=== PATIENT | female | born 1980 | race Two or more races ===

== ENCOUNTER 2017-04-15 17:37 | Inpatient (IN) | payer OTHER ==
[2017-04-15 18:22] VITALS: BMI 25.9
--- NOTE | 2017-04-15 19:46 | HP ---
COWS - Scale Resting Pulse: 0= [place] 80 or Below Sweatin= Chills/Flushing Restless Observation: 3= Extraneous Movement Pupil Size: 0= Normal to Room Light Bone or Joint Aches: 2= Severe Diffuse Aches Runny Nose/ Eye Tearin= Runny Nose/Eyes GI Upset > 30mins: 3= Vomiting/Diarrhea Tremor Observation: 2= Slight Tremor Visible Yawning Observation: 0= None Anxiety or Irritability: 2=Irritable/Anxious Goose Flesh Skin: 0=Smooth Skin COWS Score: 15 Admission [facility] Chief Complaint: WITHDRAWAL SX Allergies/Adverse Reactions: Allergies Allergy/AdvReac Type Severity Reaction Status Date / Time No Known Allergies Allergy Verified 02/19/17 18:20 History of Present Illness: 37 YEARS OLD FEMALE WITH LONG HISTORY OF HEROIN NICOTINE DEPENDENCE HAS ASTHMA CHRONIC BACK PAIN BIPOLAR II IS ADMITTED TO DETOX Exam Limitations: No Limitations - Ebola screening Have you traveled outside of the country in the last 21 days: No Have you had contact with anyone from an Ebola affected area: No Have you been sick,other than usual withdrawal symptoms: No Do you have a fever: No - Review of Systems Constitutional: Changes in sleep, Weight Stable EENT: reports: Blurred Vision (EYE GLASSES), Hearing Loss (LEFT EAR SINCE 2 WEEKS OLD) Respiratory: reports: SOB with Exertion, Productive cough (GREEN[place] YELLOWISH) Cardiac: reports: No Symptoms Reported GI: reports: Diarrhea, Nausea, Poor Fluid Intake, Vomiting, Indigestion, Abdominal cramping : reports: No Symptoms Reported Musculoskeletal: reports: Back Pain, Joint Pain, Muscle Pain, Neck Pain Integumentary: reports: Change in Color (RIGHT INNER ARM + RIGHT AND LEFT NECK) , Dryness Neuro: reports: Tremors Endocrine: reports: No Symptoms Reported Hematology: reports: No Symptoms Reported Psychiatric: reports: Judgement Intact, Orientated x3, Anxious, Depressed Other Systems: Reviewed and Negative Patient History - Patient Medical History Hx Anemia: No Hx Asthma: Yes (Pt is on Albuterol IH) Hx Chronic Obstructive Pulmonary Disease (COPD): No Hx Cancer: No Hx Cardiac Disorders: No Hx Congestive Heart Failure: No Hx Hypertension: No Hx Hypercholesterolemia: No Hx Pacemaker: No HX Cerebrovascular Accident: No Hx Seizures: No (Denies) Hx Dementia: No Hx Diabetes: No Hx Gastrointestinal Disorders: Yes (Acid Reflux) Hx Liver Disease: No (hep b , pud) Hx Genitourinary Disorders: No Hx Sexually Transmitted Disorders: No Hx Renal Disease (ESRD): No Hx Thyroid Disease: No Hx Human Immunodeficiency Virus (HIV): No (NEVER TESTED) Hx Hepatitis C: Yes (TREATED) Hx Depression: Yes Hx Suicide Attempt: No (Denies) Hx Bipolar Disorder: Yes Hx Schizophrenia: No - Patient Surgical History Past Surgical History: No Hx Neurologic Surgery: No Hx Cataract Extraction: No Hx Cardiac Surgery: No Hx Lung Surgery: No Hx Breast Surgery: No Hx Breast Biopsy: No Hx Abdominal Surgery: No Hx Appendectomy: No Hx Cholecystectomy: No Hx Genitourinary Surgery: No Hx Section: No Hx Orthopedic Surgery: No Hx Hysterectomy: No Other Surgical History: SX X2 FOR L UPPER LEG ABSCESS - PPD History Previous Implant?: Yes Documented Results: Negative w/proof Implanted On Prior R Admission?: Yes Date: 02/21/17 Results: 0mm PPD to be Administered?: No - Reproductive History Patient is a Female of Child Bearing Age (11 -55 yrs old): Yes Last Menstrual Period: 09/19/16 Patient : No - Smoking Cessation Smoking history: Current every day smoker Have you smoked in the past 12 months: Yes Aproximately how many cigarettes per day: 30 Cigars Per Day: 0 Hx Chewing Tobacco Use: No Initiated information on smoking cessation: Yes 'Breaking Loose' booklet given: 04/15/17 - Substance & Tx. History Hx Alcohol Use: No Hx Substance Use: Yes Substance Use Type: Cocaine, Opiates Hx Substance Use Treatment: Yes (02/2017 [facility] - Substances Abused Heroin Route: Injection Frequency: Daily Amount used: 8-9 bags Age of first use: 18 Date of Last Use: 04/15/17 Alcohol Route: Oral Frequency: Daily Amount used: Beer 8-9 cans X 24OZ Age of first use: 18 Date of Last Use: 04/15/17 Cocaine Route: Injection Frequency: Daily Amount used: 5 bags Age of first use: 18 Date of Last Use: 04/15/17 Marijuana/Hashish Route: Smoking Frequency: 1-2 times per week Amount used: 1 bag Age of first use: 15 Date of Last Use: 04/08/17 Ketamine Route: Smoking Frequency: Daily Amount used: 1 bag Age of first use: 34 Date of Last Use: 04/15/17 Family Disease History - Family Disease History Family Disease History: Respiratory: Father (), Mother (), Other : Father, Mother Admission Physical Exam [facility] - Vital Signs Vital Signs: Vital Signs - 24 hr 04/15/17 18:15 Temperature 98.8 F Pulse Rate 72 Respiratory 18 Rate Blood Pressure 111/63 - Physical General Appearance: Yes: Appropriately Dressed, Mild Distress, Tremorous, Irritable, Sweating, Anxious HEENTM: Yes: Hearing grossly Normal, Normal ENT Inspection, Normocephalic, Normal Voice Respiratory: Yes: Chest Non-Tender, Lungs Clear, Normal Breath Sounds, No Respiratory Distress, No Accessory Muscle Use Neck: Yes: Supple, Trachea in good position Breast: Yes: Breasts Symetrical Cardiology: Yes: Regular Rhythm, Regular Rate, S1, S2 Abdominal: Yes: Non Tender, Soft, Increased Bowel Sounds Genitourinary: Yes: Within Normal Limits Back: Yes: Normal Inspection Musculoskeletal: Yes: full range of Motion, Gait Steady, Back pain, Muscle Pain Extremities: Yes: Normal Range of Motion, Non-Tender, Tremors, Other (IV HEROIN RIGHT INNER ELBOW + RIGHT AND LEFT LATERAL NECK) Neurological: Yes: Fully Oriented, Alert, Motor Strength 5/5, Normal Response, Depressed Affect Integumentary: Yes: Warm Lymphatic: Yes: Within Normal Limits - Diagnostic (1) Bipolar II disorder Current Visit: Yes Status: Acute (2) ASTHMA Current Visit: Yes Status: Chronic (3) GERD (gastroesophageal reflux disease) Current Visit: Yes Status: Chronic Qualifiers: Esophagitis presence: without esophagitis Qualified Code(s): K21.9 - Gastro -esophageal reflux disease without esophagitis (4) HEP.C Current Visit: Yes Status: Resolved (5) Nicotine dependence Current Visit: Yes Status: Acute (6) Opioid dependence with withdrawal Current Visit: Yes Status: Acute (7) Weight loss Current Visit: Yes Status: Acute Cleared for Admission [facility] - Detox or Rehab [facility] Level of Care: Medically Managed Detox Regimen/Protocol: Methadone/Librium [facility] Breath Alcohol Content Breath Alcohol Content: 0 Urine Pregancy Test - Result Urine Test Results: Negative- NO Line Present Urine Drug Screen - Results Drug Screen Negative: No Urine Drug Screen Results: BLANK-Cocaine, OPI-Opiates, BZO-Benzodiazepines
[2017-04-15] MEDS ORDERED: METHADONE HCL 10 MG TABLET (FOR DETOX USE ONLY) PO ONE ×2 (19:47→23:00)
[2017-04-15] MEDS ORDERED: guaiFENesin/D-METHORPHAN HB 10 ML UNIT-DOSE CUPS PO PRN (19:47)
[2017-04-15] MEDS ORDERED: MAGNESIUM CITRATE 300 ML BOTTLE PO PRN (19:47)
[2017-04-15] MEDS ORDERED: LOPERAMIDE HCL 2 MG CAPSULE PO PRN (19:47)
[2017-04-15] MEDS ORDERED: NICOTINE POLACRILEX 4 MG GUM BC PRN (19:47)
[2017-04-15] MEDS ORDERED: MAGNESIUM HYDROX 2400MG/30ML ORAL SUSPENSION 30 ML CUP PO PRN (19:47)
[2017-04-15] MEDS ORDERED: MENTHOL/PHENOL 1 EACH UD MM PRN (19:47)
[2017-04-15] MEDS ORDERED: ACETAMINOPHEN 325 MG TABLET (FP) PO PRN (19:47)
[2017-04-15] MEDS ORDERED: P-EPHED 60MG/TRIPROLIDI 2.5MG TABLET PO PRN (19:47)
[2017-04-15] MEDS ORDERED: MAG HYDROX/AL HYDROX/SIMETH 30 ML UNIT-DOSE CUP PO PRN (19:47)
[2017-04-15] MEDS ORDERED: ALBUTEROL SO4 18 GM HFA INHALER IH PRN (19:49)
[2017-04-15] MEDS ORDERED: ALBUTEROL SO4 0.083% IH SOL 2.5 MG/3 ML VIAL.NEB. NEB PRN (19:52)
[2017-04-15] MEDS: chlordiazePOXIDE HCL 25 MG CAPSULE PO PRN (20:28)
[2017-04-15 22:07] LABS: URINE APPEARANCE SLCLOUDY; URINE BILIRUBIN NEGATIVE (NEGATIVE); URINE BLOOD NEGATIVE (NEGATIVE); URINE COLOR YELLOW; URINE GLUCOSE (UA) NEGATIVE (NEGATIVE); URINE KETONE TRACE (NEGATIVE); URINE NITRITE NEGATIVE (NEGATIVE); URINE PROTEIN NEGATIVE (NEGATIVE); URINE UROBILINOGEN NEGATIVE mg/dL (0.2-1.0)
[2017-04-15] MEDS: chlordiazePOXIDE HCL 25 MG CAPSULE PO SCH (22:10)
[2017-04-15] MEDS: RANITIDINE HCL 150 MG TABLET (FP) PO SCH (22:10)
[2017-04-15] MEDS: GABAPENTIN 300 MG CAPSULE (FP) PO SCH (22:10)
[2017-04-15] MEDS: THIAMINE HCL 100 MG TABLET (FP) PO SCH (22:10)
[2017-04-15] MEDS: METHOCARBAMOL 750 MG TABLET PO SCH (22:11)
[2017-04-15 22:48] LABS: URINE LEUK ESTERASE 1+ (NEGATIVE)
[2017-04-15 23:09] LABS: EPI CELLS MODERATE /HPF (FEW); URINE MUCUS RARE
[2017-04-16] MEDS: GABAPENTIN 300 MG CAPSULE (FP) PO SCH ×3 (05:30→22:23)
[2017-04-16] MEDS: chlordiazePOXIDE HCL 25 MG CAPSULE PO SCH ×4 (05:30→22:22)
[2017-04-16] MEDS: METHOCARBAMOL 750 MG TABLET PO SCH ×3 (05:32→22:22)
[2017-04-16 09:58] LABS: HEMATOCRIT 36.2 % (32.4-45.2); HEMOGLOBIN 11.7 GM/dL (10.7-15.3); MCH 28.3 pg (25.7-33.7); MCHC 32.2 g/dl (32.0-36.0); MEAN PLT VOLUME 7.4 fl (7.5-11.1); PLATELET COUNT 314 K/MM3 (134-434); RBC 4.11 M/mm3 (3.60-5.2); RDW 17.1 % (11.6-15.6); WHITE BLOOD COUNT 8.5 K/mm3 (4.0-10.0)
[2017-04-16] MEDS ORDERED: METHADONE HCL 10 MG TABLET (FOR DETOX USE ONLY) PO SCH (10:00)
[2017-04-16 10:07] LABS: CHLORIDE 106 mmol/L (98-107); POTASSIUM 3.5 mmol/L (3.5-5.1); SODIUM 140 mmol/L (136-145)
[2017-04-16] MEDS: PRENATAL VITAMINS W/ FOLIC ACID TABLET (FP) PO SCH (10:09)
[2017-04-16] MEDS: RANITIDINE HCL 150 MG TABLET (FP) PO SCH ×2 (10:09→22:22)
[2017-04-16] MEDS: NICOTINE 21 MG/24 HOURS TOPICAL PATCH TD SCH (10:10)
[2017-04-16 10:14] LABS: ALBUMIN 2.8 g/dl (3.4-5.0); ALK PHOS 265 U/L (45-117); ANION GAP 6 (8-16); BILIRUBIN,TOTAL 0.3 mg/dL (0.2-1.0); BLOOD UREA NITROGEN 10 mg/dL (7-18); CALCIUM 7.8 mg/dL (8.5-10.1); CO2 28 mmol/L (21-32); CREATININE 0.6 mg/dL (0.55-1.02); GLUCOSE,RANDOM 101 mg/dL (74-106); SGOT/AST 71 U/L (15-37); SGPT/ALT 141 U/L (12-78); TOT PROT 6.4 g/dl (6.4-8.2)
[2017-04-16] MEDS ORDERED: FLU VACCINE QUAD 60 MCG/0.5 ML (MDV 17-18) IM ONE (12:00)
[2017-04-16] MEDS ORDERED: PNEUMOCOCCAL 23 VACCINE 0.5 ML VIAL IM ONE (12:00)
[2017-04-16] MEDS ORDERED: PNEUMOC 13-VAL CONJ-DIP CRM/PF 0.5 ML DISP.SYRIN IM ONE (12:00)
[2017-04-16] MEDS: BACITRACIN 0.9 GM PACKET TP SCH ×2 (12:10→22:22)
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
--- NOTE | 2017-04-16 13:12 | EKG ---
Test Reason : Blood Pressure : / mmHG Vent. Rate : 077 BPM Atrial Rate : 077 BPM P-R Int : 134 ms QRS Dur : 086 ms QT Int : 392 ms P-R-T Axes : 058 004 057 degrees QTc Int : 443 ms NORMAL SINUS RHYTHM NORMAL ECG WHEN COMPARED WITH ECG OF 19-FEB-2017 20:40, QT HAS LENGTHENED Confirmed by YESY IRELAND MD ([id number]) on 04/16/2017 1:12:11 PM Referred By: Lara MARTINEZ Confirmed By:YESY IRELAND MD
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
[2017-04-16] MEDS: chlordiazePOXIDE HCL 25 MG CAPSULE PO PRN (13:16)
[2017-04-16] MEDS: traZODone HCL 50 MG TABLET (FP) PO SCH (22:22)
[2017-04-16] MEDS: THIAMINE HCL 100 MG TABLET (FP) PO SCH (22:22)
[2017-04-17] MEDS: chlordiazePOXIDE HCL 25 MG CAPSULE PO SCH ×3 (05:13→17:29)
[2017-04-17] MEDS: METHOCARBAMOL 750 MG TABLET PO SCH ×3 (05:13→22:13)
[2017-04-17] MEDS: GABAPENTIN 300 MG CAPSULE (FP) PO SCH ×3 (06:44→22:13)
[2017-04-17] MEDS: BACITRACIN 0.9 GM PACKET TP SCH ×2 (10:42→22:11)
[2017-04-17] MEDS: RANITIDINE HCL 150 MG TABLET (FP) PO SCH ×2 (10:43→22:12)
[2017-04-17] MEDS: METHADONE HCL 5 MG TABLET (FOR DETOX USE ONLY) PO SCH (10:43)
[2017-04-17] MEDS: PRENATAL VITAMINS W/ FOLIC ACID TABLET (FP) PO SCH (10:43)
[2017-04-17] MEDS: NICOTINE 21 MG/24 HOURS TOPICAL PATCH TD SCH (10:45)
--- NOTE | 2017-04-17 12:59 | PN ---
BHS COWS - Scale Resting Pulse: 1= [place] 81-100 Sweatin=Flushed/Facial Moisture Restless Observation: 3= Extraneous Movement Pupil Size: 0= Normal to Room Light Bone or Joint Aches: 2= Severe Diffuse Aches Runny Nose/ Eye Tearin= Runny Nose/Eyes GI Upset > 30mins: 1= Stomach Cramp Tremor Observation of Outstretched Hands: 2= Slight Tremor Visible Yawning Observation: 1= 1-2x During Session Anxiety or Irritability: 2=Irritable/Anxious Goose Flesh Skin: 0=Smooth Skin COWS Score: 16 BHS Progress Note (SOAP) Subjective: Anxious, irritable, sweating, interrupted sleep, nausea. Patient observed being very drowsy this morning with unsteady gait. She was informed that her 10am medications will be held. She came to the nurse later and began screaming and agitated requesting her medications. Objective: 04/17/17 12:59 Last Vital Signs Temp Pulse Resp BP Pulse Ox 96.9 F L 98 H 18 105/52 04/17/17 10:00 04/17/17 10:00 04/17/17 10:00 04/17/17 10:00 Laboratory Tests 04/15/17 04/16/17 04/16/17 21:50 07:30 07:30 WBC 8.5 D RBC 4.11 Hgb 11.7 Hct 36.2 MCV 88.0 MCH 28.3 MCHC 32.2 RDW 17.1 H Plt Count 314 D MPV 7.4 L Sodium Potassium Chloride Carbon Dioxide Anion Gap BUN Creatinine Creat Clearance w eGFR Random Glucose Calcium Total Bilirubin AST ALT Alkaline Phosphatase Total Protein Albumin Urine Color Yellow Urine Appearance Slcloudy Urine pH 5.0 Ur Specific [place] 1.025 Urine Protein Negative Urine Glucose (UA) Negative Urine Ketones Trace H Urine Blood Negative Urine Nitrite Negative Urine Bilirubin Negative Urine Urobilinogen Negative Ur Leukocyte Esterase Trace H Urine WBC (Auto) 4 Urine RBC (Auto) 5 Ur Epithelial Cells Moderate Urine Mucus Rare RPR Titer HIV 1&2 Antibody Screen Negative HIV P24 Antigen Negative 04/16/17 04/16/17 07:30 07:30 WBC RBC Hgb Hct MCV MCH MCHC RDW Plt Count MPV Sodium 140 Potassium 3.5 Chloride 106 Carbon Dioxide 28 Anion Gap 6 L BUN 10 Creatinine 0.6 D Creat Clearance w eGFR > 60 Random Glucose 101 Calcium 7.8 L Total Bilirubin 0.3 D AST 71 H D ALT 141 H D Alkaline Phosphatase 265 H D Total Protein 6.4 Albumin 2.8 L Urine Color Urine Appearance Urine pH Ur Specific [place] Urine Protein Urine Glucose (UA) Urine Ketones Urine Blood Urine Nitrite Urine Bilirubin Urine Urobilinogen Ur Leukocyte Esterase Urine WBC (Auto) Urine RBC (Auto) Ur Epithelial Cells Urine Mucus RPR Titer Nonreactive HIV 1&2 Antibody Screen HIV P24 Antigen Labs noted Assessment: 04/17/17 13:01 Withdrawal symptoms Plan: Continue detox Encouraged to drink lots of water for hydration
[2017-04-17] MEDS: THIAMINE HCL 100 MG TABLET (FP) PO SCH (22:11)
[2017-04-17] MEDS: chlordiazePOXIDE 5 MG CAPSULE PO SCH (22:12)
[2017-04-17] MEDS: traZODone HCL 50 MG TABLET (FP) PO SCH (22:13)
[2017-04-18] MEDS: chlordiazePOXIDE 5 MG CAPSULE PO SCH ×2 (05:20→10:10)
[2017-04-18] MEDS: METHOCARBAMOL 750 MG TABLET PO SCH ×2 (05:20→14:53)
[2017-04-18] MEDS: GABAPENTIN 300 MG CAPSULE (FP) PO SCH ×2 (05:20→14:53)
[2017-04-18] MEDS: RANITIDINE HCL 150 MG TABLET (FP) PO SCH (10:09)
[2017-04-18] MEDS: PRENATAL VITAMINS W/ FOLIC ACID TABLET (FP) PO SCH (10:09)
[2017-04-18] MEDS: BACITRACIN 0.9 GM PACKET TP SCH (10:09)
[2017-04-18] MEDS: METHADONE HCL 5 MG TABLET (FOR DETOX USE ONLY) PO SCH (10:09)
[2017-04-18] MEDS: NICOTINE 21 MG/24 HOURS TOPICAL PATCH TD SCH (10:10)
[2017-04-18 13:41] VITALS: BP 110/61; PULSE 91; TEMP 98.8
--- NOTE | 2017-04-18 13:42 | PN ---
BHS Progress Note (SOAP) Subjective: Sweaty, interrupted sleep, restless. C/o hemorrhoidal pain Objective: 04/18/17 13:39 Vital Signs Temperature 97.5 F L 04/18/17 10:00 Pulse Rate 93 H 04/18/17 10:00 Respiratory Rate 18 04/18/17 10:00 Blood Pressure 114/71 04/18/17 10:00 O2 Sat by Pulse Oximetry (%) Laboratory Last Values WBC 8.5 K/mm3 (4.0-10.0) D 04/16/17 07:30 RBC 4.11 M/mm3 (3.60-5.2) 04/16/17 07:30 Hgb 11.7 GM/dL (10.7-15.3) 04/16/17 07:30 Hct 36.2 % (32.4-45.2) 04/16/17 07:30 MCV 88.0 fl (80-96) 04/16/17 07:30 MCH 28.3 pg (25.7-33.7) 04/16/17 07:30 MCHC 32.2 g/dl (32.0-36.0) 04/16/17 07:30 RDW 17.1 % (11.6-15.6) H 04/16/17 07:30 Plt Count 314 K/MM3 (134-434) D 04/16/17 07:30 MPV 7.4 fl (7.5-11.1) L 04/16/17 07:30 Sodium 140 mmol/L (136-145) 04/16/17 07:30 Potassium 3.5 mmol/L (3.5-5.1) 04/16/17 07:30 Chloride 106 mmol/L (98-107) 04/16/17 07:30 Carbon Dioxide 28 mmol/L (21-32) 04/16/17 07:30 Anion Gap 6 (8-16) L 04/16/17 07:30 BUN 10 mg/dL (7-18) 04/16/17 07:30 Creatinine 0.6 mg/dL (0.55-1.02) D 04/16/17 07:30 Creat Clearance w eGFR > 60 (>60) 04/16/17 07:30 Random Glucose 101 mg/dL (74-106) 04/16/17 07:30 Calcium 7.8 mg/dL (8.5-10.1) L 04/16/17 07:30 Total Bilirubin 0.3 mg/dL (0.2-1.0) D 04/16/17 07:30 AST 71 U/L (15-37) H D 04/16/17 07:30 ALT 141 U/L (12-78) H D 04/16/17 07:30 Alkaline Phosphatase 265 U/L (45-117) H D 04/16/17 07:30 Total Protein 6.4 g/dl (6.4-8.2) 04/16/17 07:30 Albumin 2.8 g/dl (3.4-5.0) L 04/16/17 07:30 Urine Color Yellow 04/15/17 21:50 Urine Appearance Slcloudy 04/15/17 21:50 Urine pH 5.0 (5.0-8.0) 04/15/17 21:50 Ur Specific [place] 1.025 (1.001-1.035) 04/15/17 21:50 Urine Protein Negative (NEGATIVE) 04/15/17 21:50 Urine Glucose (UA) Negative (NEGATIVE) 04/15/17 21:50 Urine Ketones Trace (NEGATIVE) H 04/15/17 21:50 Urine Blood Negative (NEGATIVE) 04/15/17 21:50 Urine Nitrite Negative (NEGATIVE) 04/15/17 21:50 Urine Bilirubin Negative (NEGATIVE) 04/15/17 21:50 Urine Urobilinogen Negative mg/dL (0.2-1.0) 04/15/17 21:50 Ur Leukocyte Esterase Trace (NEGATIVE) H 04/15/17 21:50 Urine WBC (Auto) 4 /hpf (3-5) 04/15/17 21:50 Urine RBC (Auto) 5 /hpf (0-3) 04/15/17 21:50 Ur Epithelial Cells Moderate /HPF (FEW) 04/15/17 21:50 Urine Mucus Rare 04/15/17 21:50 RPR Titer Nonreactive (NONREACTIVE) 04/16/17 07:30 HIV 1&2 Antibody Screen Negative 04/16/17 07:30 HIV P24 Antigen Negative 04/16/17 07:30 Labs noted. AST/ALT, alk phos elevated - will f/u with PMD Assessment: withdrawal sx Plan: Continue detox, HC 2.5% BID
--- NOTE | 2017-04-18 16:24 | DS ---
[facility] Detox Discharge Summary Admission Date: 04/15/17 Discharge Date: 04/18/17 - History Present History: Alcohol Dependence, Opioid Dependence Pertinent Past History: GERD Asthma - Physical Exam Results Vital Signs: Vital Signs Temperature 98.8 F 04/18/17 13:40 Pulse Rate 91 H 04/18/17 13:40 Respiratory Rate 20 04/18/17 13:40 Blood Pressure 110/61 04/18/17 13:40 O2 Sat by Pulse Oximetry (%) Pertinent Admission Physical Exam Findings: Withdrawal sx. Laboratory Tests 04/15/17 04/16/17 04/16/17 21:50 07:30 07:30 WBC 8.5 D RBC 4.11 Hgb 11.7 Hct 36.2 MCV 88.0 MCH 28.3 MCHC 32.2 RDW 17.1 H Plt Count 314 D MPV 7.4 L Sodium Potassium Chloride Carbon Dioxide Anion Gap BUN Creatinine Creat Clearance w eGFR Random Glucose Calcium Total Bilirubin AST ALT Alkaline Phosphatase Total Protein Albumin Urine Color Yellow Urine Appearance Slcloudy Urine pH 5.0 Ur Specific [place] 1.025 Urine Protein Negative Urine Glucose (UA) Negative Urine Ketones Trace H Urine Blood Negative Urine Nitrite Negative Urine Bilirubin Negative Urine Urobilinogen Negative Ur Leukocyte Esterase Trace H Urine WBC (Auto) 4 Urine RBC (Auto) 5 Ur Epithelial Cells Moderate Urine Mucus Rare RPR Titer HIV 1&2 Antibody Screen Negative HIV P24 Antigen Negative 04/16/17 04/16/17 07:30 07:30 WBC RBC Hgb Hct MCV MCH MCHC RDW Plt Count MPV Sodium 140 Potassium 3.5 Chloride 106 Carbon Dioxide 28 Anion Gap 6 L BUN 10 Creatinine 0.6 D Creat Clearance w eGFR > 60 Random Glucose 101 Calcium 7.8 L Total Bilirubin 0.3 D AST 71 H D ALT 141 H D Alkaline Phosphatase 265 H D Total Protein 6.4 Albumin 2.8 L Urine Color Urine Appearance Urine pH Ur Specific [place] Urine Protein Urine Glucose (UA) Urine Ketones Urine Blood Urine Nitrite Urine Bilirubin Urine Urobilinogen Ur Leukocyte Esterase Urine WBC (Auto) Urine RBC (Auto) Ur Epithelial Cells Urine Mucus RPR Titer Nonreactive HIV 1&2 Antibody Screen HIV P24 Antigen labs noted - Treatment Patient has Accepted a Rehab Referral to: Rehab at [facility] - Medication Discharge Medications: Ambulatory Orders Albuterol Sulfate Inhaler - [Ventolin HFA Inhaler -] 2 inh IH Q4HPO PRN #0 inh 06/29/12 Pantoprazole Sodium [Protonix -] 40 mg PO HS #0 tablet.ec 06/29/12 Gabapentin [Neurontin] 600 mg PO TID 04/15/17 Methocarbamol [Robaxin -] 750 mg PO TID 04/15/17 Ranitidine HCl [Zantac] 150 mg PO BID 04/15/17 - Diagnosis (1) Alcohol dependence with uncomplicated withdrawal Current Visit: Yes Status: Acute (2) Opioid dependence with withdrawal Current Visit: Yes Status: Acute (3) ASTHMA Current Visit: Yes Status: Chronic (4) GERD (gastroesophageal reflux disease) Current Visit: Yes Status: Chronic Qualifiers: Esophagitis presence: without esophagitis Qualified Code(s): K21.9 - Gastro -esophageal reflux disease without esophagitis (5) HEP.C Current Visit: Yes Status: Chronic - AMA Did Patient Leave Against Medical Advice: Yes
[2017-04-18] MEDS ORDERED: HYDROCORTISONE 2.5% TOPICAL CREAM 30 GM TUBE TP SCH (22:00)
[2017-04-18] MEDS ORDERED: chlordiazePOXIDE HCL 10 MG CAPSULE PO SCH (23:00)
[2017-04-19] MEDS ORDERED: METHADONE HCL 10 MG TABLET (FOR DETOX USE ONLY) PO SCH (10:00)
[2017-04-20] MEDS ORDERED: METHADONE HCL 5 MG TABLET (FOR DETOX USE ONLY) PO SCH (06:00)
== END 2017-04-18 15:59 | disposition left against medical advice (07) | DRG 770 ==
LOC: YASAS 17:37 → Y6N 19:03
PROVIDERS: ADMIT Internal Medicine; ATTEND Internal Medicine
PROC: HZ2ZZZZ Detoxification Services for Substance Abuse Treatment (ICD-10-PCS; principal; 2017-04-15)
DX: F11.23 Opioid dependence with withdrawal (principal); F10.230 Alcohol dependence with withdrawal, uncomplicated; F14.20 Cocaine dependence, uncomplicated; F12.20 Cannabis dependence, uncomplicated; F17.210 Nicotine dependence, cigarettes, uncomplicated; F34.1 Dysthymic disorder; F31.81 Bipolar II disorder; J45.909 Unspecified asthma, uncomplicated; K21.9 Gastro-esophageal reflux disease without esophagitis; B18.2 Chronic viral hepatitis C; R74.0 Nonspecific elevation of levels of transaminase and lactic acid dehydrogenase [LDH]; R74.8 Abnormal levels of other serum enzymes; S00.212A Abrasion of left eyelid and periocular area, initial encounter; Y04.0XXA Assault by unarmed brawl or fight, initial encounter; Y93.89 Activity, other specified; Y92.238 Other place in hospital as the place of occurrence of the external cause; Z87.898 Personal history of other specified conditions
CPT/HCPCS: 36415; 80053; 81003; 81015; 85027; 86593; 87389; 90688; 90732; 93005; 93010; G0008; G0009